=== PATIENT | female | born 1960 | race Caucasian/White ===

== ENCOUNTER 2016-03-05 12:42 | Emergency (ER) | payer OTHER ==
[~2016-03-05] VITALS: Ht 167.6 cm; Wt 86.2 kg
[~2016-03-05 12:42] MED LIST: FLUO-125; HYDR-2598; LISI10TA6; TRIA50TA2
[2016-03-05 12:52] VITALS: BP 168/96
[2016-03-05] MEDS ORDERED: KETOROLAC TROMETH 60MG/2ML VIAL IM ONE (15:30)
[2016-03-05] MEDS ORDERED: HYDROmorphone HCL 2 MG/ML VL IM ONE (15:45)
[2016-03-05] MEDS ORDERED: PROMETHAZINE HCL 25 MG/ML 1ML IM ONE (15:45)
== END 2016-03-05 16:14 | disposition home or self-care (01) ==
LOC: ER 12:46
DX: G89.29 Other chronic pain (principal); M54.5 Low back pain; M51.16 Intervertebral disc disorders with radiculopathy, lumbar region; J44.9 Chronic obstructive pulmonary disease, unspecified; I10 Essential (primary) hypertension; E78.5 Hyperlipidemia, unspecified; F17.210 Nicotine dependence, cigarettes, uncomplicated; Z88.0 Allergy status to penicillin; Z88.6 Allergy status to analgesic agent
CPT/HCPCS: 72100; 96372; 99284; J1170; J1885; J2550

== ENCOUNTER 2016-06-01 12:43 | Emergency (ER) | payer OTHER ==
[~2016-06-01] VITALS: Ht 170.2 cm; Wt 81.2 kg
[2016-06-01 12:45] VITALS: BP 178/102
[2016-06-01 13:55] LABS: Basophils # (auto) 0 uL; Basophils % (auto) 0.3 % (0.0-2.0); Eosinophils # (auto) 0.1 uL; Hematocrit 41.1 % (36.0-46.0); Hemoglobin 13.6 g/dL (12.2-16.2); Lymphocytes # (auto) 1.4 uL; Lymphocytes % (auto) 26.7 % (10.0-50.0); Mean Corpuscular Hemoglobin 29.8 pg (28.0-32.0); Mean Corpuscular Hgb Conc. 33.1 g/dL (32.0-36.0); Mean Corpuscular Volume 90.1 fL (80.0-100.0); Mean Platelet Volume 8.3 fL (7.4-10.4); Monocytes # (auto) 0.2 uL; Monocytes % (auto) 4.4 % (0.0-12.0); Neutrophils # (auto) 3.5 uL; Neutrophils % (auto) 67.6 % (37.0-80.0); Platelet Count (auto) 334 10^3/uL (140-450); Red Cell Distribution Width 15.1 % (11.6-16.0); White Blood Cell 5.2 10^3/uL (4.4-10.8)
[2016-06-01 14:08] LABS: Albumin 4.1 g/dL (3.4-5.0); Alkaline Phosphatase 84 U/L (45-117); Anion Gap 10 (5-15); Aspartate Aminotransferase 23 U/L (15-37); BUN/Creatinine Ratio 13.3; Bilirubin, Total 0.5 mg/dL (0.2-1.0); Blood Urea Nitrogen 8 mg/dL (7-18); Calcium 9.4 mg/dL (8.5-10.1); Carbon Dioxide 28 mmol/L (21-32); Chloride 108 mmol/L (98-107); GFR African American 132 mL/min; GFR Non-African American 109 mL/min; Glucose 91 mg/dL (74-106); Potassium 3.9 mmol/L (3.5-5.1); Sodium 146 mmol/L (136-145); Total Protein 7.7 g/dL (6.4-8.2)
== END 2016-06-01 16:59 | disposition left against medical advice (07) ==
LOC: ER 12:43
DX: R53.1 Weakness (principal); R51 Headache; R00.2 Palpitations; Z53.21 Procedure and treatment not carried out due to patient leaving prior to being seen by health care provider
CPT/HCPCS: 36415; 70450; 71020; 80053; 84484; 85025; 93005

== ENCOUNTER 2016-07-01 12:04 | Emergency (ER) | payer OTHER ==
[~2016-07-01] VITALS: Ht 167.6 cm; Wt 81.6 kg
[2016-07-01 16:16] VITALS: BP 181/100
[2016-07-01] MEDS ORDERED: ACETAMINOPHEN/CODEINE#3 (300/30mg) TAB PO ONE (16:30)
== END 2016-07-01 16:46 | disposition home or self-care (01) ==
LOC: ER 12:13
DX: S46.002A Unspecified injury of muscle(s) and tendon(s) of the rotator cuff of left shoulder, initial encounter (principal); M19.90 Unspecified osteoarthritis, unspecified site; J44.9 Chronic obstructive pulmonary disease, unspecified; E78.5 Hyperlipidemia, unspecified; I10 Essential (primary) hypertension; G89.29 Other chronic pain; M54.5 Low back pain; Z90.49 Acquired absence of other specified parts of digestive tract; Z88.6 Allergy status to analgesic agent; Z88.0 Allergy status to penicillin; F17.210 Nicotine dependence, cigarettes, uncomplicated; X50.3XXA Overexertion from repetitive movements, initial encounter; Y93.89 Activity, other specified; Y92.89 Other specified places as the place of occurrence of the external cause; Y99.8 Other external cause status
CPT/HCPCS: 73030; 73080

== ENCOUNTER 2016-10-17 12:09 | Emergency (ER) | payer OTHER ==
[~2016-10-17] VITALS: Ht 167.6 cm; Wt 82.6 kg
[2016-10-17 14:32] LABS: Basophils # (auto) 0 uL; Basophils % (auto) 0.5 % (0.0-2.0); CONDITION Y; Eosinophils # (auto) 0 uL; Eosinophils % (auto) 0.5 % (0.0-7.0); Hematocrit 41.1 % (36.0-46.0); Hemoglobin 14.1 g/dL (12.2-16.2); Lymphocytes % (auto) 30.1 % (10.0-50.0); Mean Corpuscular Hemoglobin 30.6 pg (28.0-32.0); Mean Corpuscular Hgb Conc. 34.4 g/dL (32.0-36.0); Monocytes # (auto) 0.8 uL; Monocytes % (auto) 7.8 % (0.0-12.0); Neutrophils # (auto) 6.1 uL; Neutrophils % (auto) 61.1 % (37.0-80.0); Platelet Count (auto) 327 10^3/uL (140-450); Red Cell Distribution Width 15.3 % (11.6-16.0); White Blood Cell 10.1 10^3/uL (4.4-10.8)
[2016-10-17 14:53] LABS: Albumin 4.7 g/dL (3.4-5.0); Anion Gap 7 (5-15); Aspartate Aminotransferase 21 U/L (15-37); BUN/Creatinine Ratio 24.7; Blood Urea Nitrogen 20 mg/dL (7-18); Calcium 9.2 mg/dL (8.5-10.1); Carbon Dioxide 25 mmol/L (21-32); Chloride 108 mmol/L (98-107); GFR African American 93 mL/min; GFR Non-African American 77 mL/min; Glucose 91 mg/dL (74-106); Magnesium 2.6 mg/dL (1.6-2.6); Potassium 3.8 mmol/L (3.5-5.1); Sodium 140 mmol/L (136-145)
[2016-10-17 14:57] LABS: Alkaline Phosphatase 88 U/L (45-117); Bilirubin, Total 0.8 mg/dL (0.2-1.0); Total Protein 8.5 g/dL (6.4-8.2)
[2016-10-17] MEDS ORDERED: HYDROcodone-ACET 5/325MG TAB PO ONE (19:00)
[2016-10-17] MEDS ORDERED: cloNIDine HCL 0.1 MG TAB PO ONE (19:15)
[2016-10-17 20:28] VITALS: BP 161/90
== END 2016-10-17 20:29 | disposition home or self-care (01) ==
LOC: ER 12:09
DX: S33.5XXA Sprain of ligaments of lumbar spine, initial encounter (principal); R51 Headache; M19.90 Unspecified osteoarthritis, unspecified site; J44.9 Chronic obstructive pulmonary disease, unspecified; I10 Essential (primary) hypertension; E78.5 Hyperlipidemia, unspecified; Z87.891 Personal history of nicotine dependence; Z88.0 Allergy status to penicillin; X50.1XXA Overexertion from prolonged static or awkward postures, initial encounter; Y93.89 Activity, other specified; Y99.8 Other external cause status; Y92.89 Other specified places as the place of occurrence of the external cause
CPT/HCPCS: 36415; 70450; 71020; 72131; 80053; 83735; 84484; 85025; 93005

== ENCOUNTER 2017-04-25 13:02 | Emergency (ER) | payer OTHER ==
[~2017-04-25] VITALS: Ht 167.6 cm; Wt 83.5 kg
[2017-04-25 13:24] VITALS: BP 158/89
== END 2017-04-25 15:44 | disposition left against medical advice (07) ==
LOC: ER 13:02
DX: M54.5 Low back pain (principal); Z53.21 Procedure and treatment not carried out due to patient leaving prior to being seen by health care provider

== ENCOUNTER 2019-07-27 12:11 | Inpatient (IN) | payer OTHER ==
[~2019-07-27] VITALS: Ht 167.6 cm; Wt 98.3 kg
--- NOTE | 2019-07-27 02:57 | NUR ---
Telemetry admit from BABATUNDE GERMAN admitted to Telemetry unit after no SBAR received. Patient oriented to HANY BORGES, RN primary RN, unit, room, bed, and unit policies regarding patient care and visiting hours. Patient now on continuous telemetry monitoring, tele box # [id number] and telemetry reading on arrival to unit is sinus rhythm. Patient weighed by bedscale and encouraged to call if they need something. All questions and concerns addressed, patient verbalized understanding.
[~2019-07-27 12:11] MED LIST changes: +AMLO2.5T7 PO; -LISI10TA6; +LISI40TA PO; +METO25TA5 PO; +PERCOT PO
[2019-07-27] MEDS ORDERED: ACETAMINOPHEN 325 MG TAB PO ONE (13:15)
[2019-07-27] MEDS ORDERED: ONDANSETRON HCL 4 MG/2 ML VIAL IV ONE (13:45)
[2019-07-27] MEDS ORDERED: MORPHINE SULF INJ 2 MG/ML SYRINGE 1ML IV ONE ×2 (13:45→16:30)
[2019-07-27 14:01] LABS: Basophils # (auto) 0.1 10 ^3/uL (0-0.2); Basophils % (auto) 0.8 % (0.0-2.0); Eosinophils # (auto) 0 10 ^3/uL (0-0.8); Eosinophils % (auto) 0.4 % (0.0-7.0); Hematocrit 42.1 % (36.0-46.0); Hemoglobin 14.2 g/dL (12.2-16.2); Lymphocytes % (auto) 26.5 % (10.0-50.0); Mean Corpuscular Hemoglobin 29.8 pg (28.0-32.0); Mean Corpuscular Hgb Conc. 33.6 g/dL (32.0-36.0); Mean Corpuscular Volume 88.8 fL (80.0-100.0); Monocytes # (auto) 0.5 10 ^3/uL (0-1.3); Monocytes % (auto) 6.5 % (0.0-12.0); Neutrophils # (auto) 4.8 10 ^3/uL (1.6-8.6); Neutrophils % (auto) 65.8 % (37.0-80.0); Nucleated Red Blood Cells % 0.1 %; Platelet Count (auto) 308 10^3/uL (140-450); Red Blood Cells 4.75 10^6/uL (4.0-5.20); Red Cell Distribution Width 14.2 % (11.8-14.3); White Blood Cell 7.4 10^3/uL (4.4-10.8)
[2019-07-27 14:16] LABS: INR 1.01 (0.9-1.15)
[2019-07-27 14:17] LABS: Albumin 3.8 g/dL (3.4-5.0); Anion Gap 5 (5-15); BUN/Creatinine Ratio 15.7; Blood Urea Nitrogen 14 mg/dL (7-18); Calcium 8.6 mg/dL (8.5-10.1); Carbon Dioxide 26 mmol/L (21-32); Chloride 111 mmol/L (98-107); GFR African American 83 mL/min; GFR Non-African American 69 mL/min; Glucose 102 mg/dL (74-106); Potassium 3.6 mmol/L (3.5-5.1); Sodium 142 mmol/L (136-145)
[2019-07-27 14:19] LABS: Alanine Aminotransferase 13 U/L (13-56); Aspartate Aminotransferase 13 U/L (15-37); Bilirubin, Total 0.4 mg/dL (0.2-1.0); Total Protein 7.6 g/dL (6.4-8.2)
[2019-07-27 14:22] LABS: Alkaline Phosphatase 81 U/L (45-117)
[2019-07-27] MEDS ORDERED: PROMETHAZINE HCL 25 MG/ML 1ML IV ONE (16:30)
[2019-07-27] MEDS ORDERED: MORPHINE SULF INJ 2 MG/ML SYRINGE 1ML IV PRN (18:15)
[2019-07-27] MEDS ORDERED: ACETAMINOPHEN 500 MG TAB PO PRN (18:15)
[2019-07-27] MEDS ORDERED: NITROGLYCERIN 0.4 MG SL TAB SL PRN (18:15)
[2019-07-27] MEDS ORDERED: METOPROLOL SUCCINATE XL 50 MG TAB PO ONE (18:45)
[2019-07-27] MEDS ORDERED: METOPROLOL SUCCINATE XL 50 MG TAB PO SCH (18:45)
[2019-07-27] MEDS: HYDROcodone-ACET 5/325MG TAB PO PRN ×2 (19:00→19:12)
[2019-07-27 19:40] VITALS: BP 140/87
[2019-07-27 20:00] VITALS: BP 120/64
[2019-07-27] MEDS: MORPHINE SULF INJ 2 MG/ML SYRINGE 1ML IV PRN (20:56)
[2019-07-27 22:00] VITALS: BP 120/64
[2019-07-28] MEDS: MORPHINE SULF INJ 2 MG/ML SYRINGE 1ML IV PRN ×4 (02:59→21:12)
--- NOTE | 2019-07-28 03:22 | NUR ---
SPECIMEN Urine sample collected and sent to lab via [facility] system.
[2019-07-28 03:43] LABS: Urine Bacteria FEW /hpf (None Seen); Urine Blood Negative /uL (Negative); Urine Specific Gravity 1.018 (1.001-1.035); Urine WBC 2 /hpf (0 - 5)
[2019-07-28 05:00] VITALS: BP 155/91
[2019-07-28] MEDS: ONDANSETRON HCL 4 MG/2 ML VIAL IV PRN ×2 (06:57→13:51)
--- NOTE | 2019-07-28 08:10 | NUR ---
AMA to smoke in chart. Patient off unit to smoke.
[2019-07-28 09:00] VITALS: BP 142/69
[2019-07-28] MEDS: FLUoxetine HCL 20 MG CAP PO SCH (09:23)
[2019-07-28] MEDS: FAMOTIDINE 20 MG TAB PO SCH (09:23)
[2019-07-28] MEDS: METOPROLOL SUCCINATE XL 50 MG TAB PO SCH (09:24)
[2019-07-28] MEDS: HYDROcodone-ACET 5/325MG TAB PO PRN (10:35)
--- NOTE | 2019-07-28 10:35 | NUR ---
Pain Patient complained of pain to her head 07/16. [place] administered as ordered. Will reassess as per protocol.
--- NOTE | 2019-07-28 11:35 | NUR ---
Pain Patient states her pain has improved, slight pressure at 2/10.
[2019-07-28 12:30] VITALS: BP 156/81
--- NOTE | 2019-07-28 12:40 | NUR ---
Hospitalist Helening Dr. Weber at bedside.
--- NOTE | 2019-07-28 13:51 | NUR ---
Pain Morphine administered for pain 10. Will reassess.
[2019-07-28] MEDS ORDERED: LORazepam 2MG/ML-1ML VIAL IV PRN (16:15)
[2019-07-28 16:41] VITALS: BP 127/79
[2019-07-28] MEDS: HYDROcodone-ACET 10/325MG TAB PO PRN (17:57)
--- NOTE | 2019-07-28 17:57 | NUR ---
Pain [place] 10/325 administered for pain 8-9/10.
--- NOTE | 2019-07-28 18:57 | NUR ---
Pain reassessment Patient stated that [place] helped her pain. She ambulated off unit to go smoke.
--- NOTE | 2019-07-28 19:30 | NUR ---
OPENING SHIFT NOTE Assumed care of patient who is A&O x4. Currently on RA with no s/s of distress. Reports 08/15 headache. Pain management options discussed. Patient is ambulatory without the use of assistive devices. POC discussed with patient who verbalizes understanding. Bed is in low locked position with side rails up x2. Call light is within reach and patient encouraged to call for assistance when needed. Will continue to monitor for changes PRN.
[2019-07-28 20:00] VITALS: BP 155/71
[2019-07-28 22:00] VITALS: BP 155/71
[2019-07-29] MEDS: HYDROcodone-ACET 10/325MG TAB PO PRN ×2 (00:25→09:13)
[2019-07-29 05:00] VITALS: BP 159/81
[2019-07-29] MEDS: MORPHINE SULF INJ 2 MG/ML SYRINGE 1ML IV PRN ×2 (05:42→13:41)
--- NOTE | 2019-07-29 07:48 | NUR ---
Opening Shift Note Assumed care of patient, awake and alert ambulating in room. No S/S of distress/SOB or pain. Instructed on POC and to call for assist PRN, will continue to monitor for changes Q1hr and PRN.
[2019-07-29 09:00] VITALS: BP 173/92
[2019-07-29] MEDS: FLUoxetine HCL 20 MG CAP PO SCH (09:13)
[2019-07-29] MEDS: FAMOTIDINE 20 MG TAB PO SCH (09:13)
--- NOTE | 2019-07-29 09:13 | NUR ---
Pain Medication Patient complained of having severe headache at 11/15. Medicated with [place] as ordered. Will reassess as per protocol.
[2019-07-29] MEDS: METOPROLOL SUCCINATE XL 50 MG TAB PO SCH (09:14)
--- NOTE | 2019-07-29 09:45 | NUR ---
Off Unit Patient left unit in wheelchair for MRI.
--- NOTE | 2019-07-29 10:28 | NUR ---
On Unit Patient returned to unit from MRI.
[2019-07-29 13:00] VITALS: BP 127/76
--- NOTE | 2019-07-29 13:41 | NUR ---
Pain Patient complained of pain 10/16, MD authorized pain medication before discharge. Morphine administered as ordered. Will reassess as per protocol.
--- NOTE | 2019-07-29 17:00 | NUR ---
Discharge instructions given as ordered. Encourage to follow up with PMD as instructed. All questions and concerns addressed. Patient verbalized understanding. Medication reconciliation form completed and copy given to patient. IV removed with catheter intact and pressure dressing applied. Telemetry unit returned to ICU. Patient ambulated to vehicle with all personal belongings. No distress noted at time of departure.
== END 2019-07-29 17:00 | disposition home or self-care (01) | DRG 103 ==
LOC: ER 12:11 → TELE 12:12 → TELE-WESTW 19:39
PROVIDERS: ADMIT Nurse Practitioner Acute Care; ATTEND Family Medicine
DX: R51 Headache (principal); I65.29 Occlusion and stenosis of unspecified carotid artery; I10 Essential (primary) hypertension; J44.9 Chronic obstructive pulmonary disease, unspecified; F32.9 Major depressive disorder, single episode, unspecified; R07.89 Other chest pain; E66.9 Obesity, unspecified; F41.9 Anxiety disorder, unspecified; Z96.652 Presence of left artificial knee joint; E78.5 Hyperlipidemia, unspecified; F17.210 Nicotine dependence, cigarettes, uncomplicated; Z79.899 Other long term (current) drug therapy; Z86.73 Personal history of transient ischemic attack (TIA), and cerebral infarction without residual deficits; Z86.718 Personal history of other venous thrombosis and embolism; Z80.1 Family history of malignant neoplasm of trachea, bronchus and lung; Z82.49 Family history of ischemic heart disease and other diseases of the circulatory system; Z83.3 Family history of diabetes mellitus; Z68.35 Body mass index [BMI] 35.0-35.9, adult; M54.9 Dorsalgia, unspecified; R42 Dizziness and giddiness
CPT/HCPCS: 36415; 70450; 70551; 71045; 71250; 80053; 81001; 83735; 84484; 85025; 85379; 85610; 85730; 93005; 93306; 93886; G0378; J2405

== ENCOUNTER 2019-08-17 20:45 | Emergency (ER) | payer OTHER ==
[~2019-08-17] VITALS: Ht 170.2 cm; Wt 90.7 kg
[~2019-08-17 20:45] MED LIST changes: +AMLO-483 PO; -AMLO2.5T7 PO; -LISI40TA PO; +LISI40TA11 PO
[2019-08-17 21:00] VITALS: BP 103/59
[2019-08-17 22:16] LABS: Basophils # (auto) 0.1 10 ^3/uL (0-0.2); Basophils % (auto) 0.9 % (0.0-2.0); Eosinophils # (auto) 0.1 10 ^3/uL (0-0.8); Hematocrit 37.9 % (36.0-46.0); Hemoglobin 12.9 g/dL (12.2-16.2); Lymphocytes % (auto) 26.5 % (10.0-50.0); Mean Corpuscular Hemoglobin 30.7 pg (28.0-32.0); Mean Corpuscular Volume 90.4 fL (80.0-100.0); Monocytes # (auto) 0.8 10 ^3/uL (0-1.3); Monocytes % (auto) 11.4 % (0.0-12.0); Neutrophils # (auto) 4.4 10 ^3/uL (1.6-8.6); Neutrophils % (auto) 59.2 % (37.0-80.0); Platelet Count (auto) 235 10^3/uL (140-450); Red Blood Cells 4.19 10^6/uL (4.0-5.20); Red Cell Distribution Width 14.4 % (11.8-14.3); White Blood Cell 7.4 10^3/uL (4.4-10.8)
[2019-08-17 22:37] LABS: Anion Gap 4 (5-15); Blood Urea Nitrogen 25 mg/dL (7-18); Calcium 8.9 mg/dL (8.5-10.1); Carbon Dioxide 27 mmol/L (21-32); Chloride 104 mmol/L (98-107); Glucose 98 mg/dL (74-106); Potassium 4.3 mmol/L (3.5-5.1); Sodium 135 mmol/L (136-145)
[2019-08-17 22:42] LABS: Alanine Aminotransferase 26 U/L (13-56); Alkaline Phosphatase 88 U/L (45-117); Aspartate Aminotransferase 24 U/L (15-37); BUN/Creatinine Ratio 16.4; Bilirubin, Total 0.4 mg/dL (0.2-1.0); GFR African American 45 mL/min; GFR Non-African American 37 mL/min; Total Protein 7.9 g/dL (6.4-8.2)
== END 2019-08-17 23:41 | disposition home or self-care (01) ==
LOC: ER 20:45
DX: K59.00 Constipation, unspecified (principal); J44.9 Chronic obstructive pulmonary disease, unspecified; E78.5 Hyperlipidemia, unspecified; I10 Essential (primary) hypertension; F17.210 Nicotine dependence, cigarettes, uncomplicated; Z88.0 Allergy status to penicillin; Z88.8 Allergy status to other drugs, medicaments and biological substances
CPT/HCPCS: 36415; 71045; 74176; 80053; 83880; 84484; 85025; 93005

== ENCOUNTER 2019-09-08 12:24 | Emergency (ER) | payer OTHER ==
[~2019-09-08] VITALS: Ht 170.2 cm; Wt 85.7 kg
[~2019-09-08 12:24] MED LIST changes: -AMLO-483 PO; +AMLO2.5T7 PO; +LISI40TA PO; -LISI40TA11 PO
[2019-09-08 13:32] VITALS: BP 141/79
[2019-09-08] MEDS ORDERED: HYDROcodone-ACET 10/325MG TAB PO ONE (14:45)
== END 2019-09-08 14:58 | disposition home or self-care (01) ==
LOC: ER 12:24
DX: M25.562 Pain in left knee (principal); J44.9 Chronic obstructive pulmonary disease, unspecified; E78.5 Hyperlipidemia, unspecified; I10 Essential (primary) hypertension; F17.210 Nicotine dependence, cigarettes, uncomplicated; Z88.0 Allergy status to penicillin; Z88.6 Allergy status to analgesic agent; Z86.73 Personal history of transient ischemic attack (TIA), and cerebral infarction without residual deficits; W18.39XA Other fall on same level, initial encounter; Y93.89 Activity, other specified; Y92.89 Other specified places as the place of occurrence of the external cause; Y99.8 Other external cause status
CPT/HCPCS: 73562; 73610

== ENCOUNTER 2019-09-22 07:35 | Emergency (ER) | payer OTHER ==
[~2019-09-22] VITALS: Ht 167.6 cm; Wt 81.6 kg
[~2019-09-22 07:35] MED LIST changes: +AMLO-483 PO; -AMLO2.5T7 PO; -LISI40TA PO; +LISI40TA11 PO
[2019-09-22 09:54] VITALS: BP 138/76
== END 2019-09-22 09:53 | disposition home or self-care (01) ==
LOC: ER 07:35
DX: J40 Bronchitis, not specified as acute or chronic (principal); J06.9 Acute upper respiratory infection, unspecified; E78.5 Hyperlipidemia, unspecified; J44.9 Chronic obstructive pulmonary disease, unspecified; I10 Essential (primary) hypertension; F17.210 Nicotine dependence, cigarettes, uncomplicated; Z86.73 Personal history of transient ischemic attack (TIA), and cerebral infarction without residual deficits
CPT/HCPCS: 71045; 93005

== ENCOUNTER 2020-03-31 13:08 | Emergency (ER) | payer OTHER ==
[~2020-03-31] VITALS: Ht 175.3 cm; Wt 85.7 kg
[2020-03-31 13:30] VITALS: BP 119/80
[2020-03-31 14:22] LABS: Basophils # (auto) 0.1 10 ^3/uL (0-0.2); Basophils % (auto) 1.4 % (0.0-2.0); Eosinophils # (auto) 0.2 10 ^3/uL (0-0.8); Hematocrit 34.9 % (36.0-46.0); Hemoglobin 11.9 g/dL (12.2-16.2); Lymphocytes # (auto) 2.4 10 ^3/uL (0.4-5.4); Lymphocytes % (auto) 41.4 % (10.0-50.0); Mean Corpuscular Hemoglobin 30.6 pg (28.0-32.0); Mean Corpuscular Hgb Conc. 34.1 g/dL (32.0-36.0); Mean Corpuscular Volume 89.8 fL (80.0-100.0); Monocytes # (auto) 0.5 10 ^3/uL (0-1.3); Monocytes % (auto) 9.3 % (0.0-12.0); Neutrophils # (auto) 2.6 10 ^3/uL (1.6-8.6); Neutrophils % (auto) 44.9 % (37.0-80.0); Platelet Count (auto) 247 10^3/uL (140-450); Red Blood Cells 3.88 10^6/uL (4.0-5.20); Red Cell Distribution Width 13.8 % (11.8-14.3); White Blood Cell 5.8 10^3/uL (4.4-10.8)
[2020-03-31 14:42] LABS: Calcium 8.3 mg/dL (8.5-10.1); Potassium 4.2 mmol/L (3.5-5.1)
[2020-03-31 14:46] LABS: BUN/Creatinine Ratio 17.6; Bilirubin, Total 0.2 mg/dL (0.2-1.0); Total Protein 7.8 g/dL (6.4-8.2)
[2020-03-31] MEDS ORDERED: GASTROGRAFIN 120 ML SOL ONE (16:15)
[2020-03-31] MEDS ORDERED: BARIUM SULFATE 98% 340 GM PWDR ONE (16:16)
[2020-03-31] MEDS ORDERED: EZ PAQUE SUSP 12OZ BTL ONE (16:17)
== END 2020-03-31 17:19 | disposition left against medical advice (07) ==
LOC: ER 13:08
DX: R13.10 Dysphagia, unspecified (principal); F17.210 Nicotine dependence, cigarettes, uncomplicated; I10 Essential (primary) hypertension; E78.5 Hyperlipidemia, unspecified; Z79.899 Other long term (current) drug therapy; Z88.0 Allergy status to penicillin; Z88.8 Allergy status to other drugs, medicaments and biological substances
CPT/HCPCS: 36415; 74220; 80053; 85025; 99284; Q9963

== ENCOUNTER 2020-05-05 16:13 | Emergency (ER) | payer OTHER ==
[~2020-05-05] VITALS: Ht 175.3 cm; Wt 94.3 kg
[2020-05-05 17:07] LABS: Basophils # (auto) 0 10 ^3/uL (0-0.2); Basophils % (auto) 0.7 % (0.0-2.0); Eosinophils # (auto) 0.2 10 ^3/uL (0-0.8); Eosinophils % (auto) 2.6 % (0.0-7.0); Hematocrit 34.8 % (36.0-46.0); Hemoglobin 11.6 g/dL (12.2-16.2); Lymphocytes # (auto) 1.6 10 ^3/uL (0.4-5.4); Lymphocytes % (auto) 24.8 % (10.0-50.0); Mean Corpuscular Hemoglobin 30.4 pg (28.0-32.0); Mean Corpuscular Hgb Conc. 33.4 g/dL (32.0-36.0); Monocytes # (auto) 0.7 10 ^3/uL (0-1.3); Neutrophils # (auto) 4.1 10 ^3/uL (1.6-8.6); Neutrophils % (auto) 61.9 % (37.0-80.0); Platelet Count (auto) 271 10^3/uL (140-450); Red Blood Cells 3.82 10^6/uL (4.0-5.20); Red Cell Distribution Width 14.2 % (11.8-14.3); White Blood Cell 6.6 10^3/uL (4.4-10.8)
[2020-05-05 17:21] LABS: Albumin 3.9 g/dL (3.4-5.0); Anion Gap 8 (5-15); Blood Urea Nitrogen 15 mg/dL (7-18); Calcium 8.4 mg/dL (8.5-10.1); Carbon Dioxide 27 mmol/L (21-32); Chloride 100 mmol/L (98-107); Glucose 71 mg/dL (74-106); Magnesium 2.4 mg/dL (1.6-2.6); Potassium 4.3 mmol/L (3.5-5.1); Sodium 135 mmol/L (136-145)
[2020-05-05 17:24] LABS: INR 0.98 (0.9-1.15); Partial Thromboplastin Time 30.2 sec (23.0-31.2)
[2020-05-05 17:26] LABS: Alanine Aminotransferase 27 U/L (13-56); Alkaline Phosphatase 98 U/L (45-117); Aspartate Aminotransferase 49 U/L (15-37); BUN/Creatinine Ratio 14.4; Bilirubin, Total 0.5 mg/dL (0.2-1.0); GFR African American 69 mL/min; GFR Non-African American 57 mL/min; Total Protein 7.3 g/dL (6.4-8.2)
[2020-05-05 19:27] VITALS: BP 125/65
== END 2020-05-05 20:12 | disposition short-term general hospital (02) ==
LOC: ER 16:13
DX: R60.9 Edema, unspecified (principal); I89.0 Lymphedema, not elsewhere classified; Z20.822 Contact with and (suspected) exposure to COVID-19
CPT/HCPCS: 36415; 71045; 80053; 83735; 83880; 84443; 84484; 85025; 85379; 85610; 85730; 87426; 93005; 93970